=== PATIENT | female | born 1970 | race Caucasian/White ===

== ENCOUNTER 2022-11-21 02:50 | Emergency (ER) | payer OTHER ==
[~2022-11-21] VITALS: Ht 165.1 cm; Wt 87.5 kg
[2022-11-21 02:57] VITALS: BP 149/89
[2022-11-21] MEDS ORDERED: LORazepam 1 MG TAB PO ONE (04:25)
--- NOTE | 2022-11-21 05:37 | NUR ---
Dr. Funes examining patient.
[2022-11-21] MEDS ORDERED: HYDR-637 PO (05:39)
[2022-11-21 05:40] VITALS: BP 149/89
--- NOTE | 2022-11-21 05:40 | NUR ---
Patient discharged with v/s stable. Written and verbal after care instructions given and explained. Patient alert, oriented and verbalized understanding of instructions. Ambulatory with steady gait. All questions addressed prior to discharge. ID band removed. Patient advised to follow up with PMD. Rx of HYDROXYZINE given. Patient educated on indication of medication including possible reaction and side effects. Opportunity to ask questions provided and answered.
== END 2022-11-21 05:40 | disposition home or self-care (01) ==
LOC: MED 02:50
DX: R00.2 Palpitations (principal); F41.9 Anxiety disorder, unspecified; R20.0 Anesthesia of skin
CPT/HCPCS: 99283

== ENCOUNTER 2024-05-18 21:27 | Emergency (ER) | payer OTHER ==
[~2024-05-18] VITALS: Ht 162.6 cm; Wt 81.6 kg
[~2024-05-18 21:27] MED LIST: HYDR-637 PO
[2024-05-18 21:28] VITALS: BP 147/73; PULSE 56; RESP 16; TEMP 97.5; O2SAT 98
[2024-05-18] MEDS: HYDROcodone/APAP 5/325 MG 1 TAB TAB PO ONE (22:13)
[2024-05-18] MEDS: LIDOCAINE MPF 1% 10 MG/ML VIAL INJ ONE (22:45)
[2024-05-18 22:52] LABS: APPEARANCE,URINE CLEAR (CLEAR); BILIRUBIN,URINE NEGATIVE (NEGATIVE); BLOOD, URINE TRACE-I (NEGATIVE); COLOR,URINE YELLOW (YELLOW); LEUKOCYTE ESTERASE ,URINE 1+ (NEGATIVE); NITRITE, URINE NEGATIVE (NEGATIVE); PROTEIN,URINE NEGATIVE (NEGATIVE); UGLUCOSE NEGATIVE (NEGATIVE); UROBILINOGEN,URINE 0.2 EU/dL (0.2 - 1)
[2024-05-18 23:08] LABS: BACTERIA,URINE 1+ /HPF (None Seen); CALCIUM OXALATE CRYSTALS,UR None Seen /HPF (None Seen); CYSTINE CRYSTALS,URINE None Seen /HPF (None Seen); FATTY CASTS,URINE None Seen /LPF (None Seen); MUCUS,URINE 1+ /LPF (None Seen); OTHER CRYSTALS,URINE None Seen /HPF (None Seen); RBC,URINE 0-5 /HPF (0-5); SQUAMOUS EPITHELIAL CELL,UR 0-3 (FEW) /LPF (0-3 (FEW)); TRICHOMONAS,URINE None Seen /HPF (None Seen); TRIPLE PHOSPHATE CRYSTAL,UR None Seen /HPF (None Seen); URIC ACID CRYSTALS,URINE None Seen /HPF (None Seen); URINE AMORPHOUS PHOSPHATES None Seen /HPF (None Seen); URINE AMORPHOUS URATE None Seen /HPF (None Seen); WHITE BLOOD CELL CASTS,URINE None Seen /LPF (None Seen)
[2024-05-18 23:09] LABS: COARSE GRANULAR CASTS,URINE None Seen /LPF (None Seen); FINE GRANULAR CASTS,URINE None Seen /LPF (None Seen); HYALINE CASTS, URINE None Seen /LPF (None Seen); OTHER CASTS, URINE None Seen /LPF (None Seen); RED BLOOD CELL CASTS,URINE None Seen /LPF (None Seen); WAXY CASTS,URINE None Seen /LPF (None Seen)
[2024-05-18] MEDS ORDERED: DOXY-690 PO (23:22)
[2024-05-18] MEDS ORDERED: ACET-8905 PO (23:22)
[2024-05-18 23:36] VITALS: BP 135/73; PULSE 57; RESP 22; TEMP 97.5; O2SAT 95
== END 2024-05-18 23:36 | disposition home or self-care (01) ==
LOC: MED 21:27
DX: N75.0 Cyst of Bartholin's gland (principal); Z79.1 Long term (current) use of non-steroidal anti-inflammatories (NSAID); Z79.2 Long term (current) use of antibiotics; Z79.899 Other long term (current) drug therapy
CPT/HCPCS: 56420; 81001; 87086; 99284; J2001